=== PATIENT | male | born 1940 | race Caucasian/White ===

== ENCOUNTER 2021-06-22 15:42 | Emergency (ER) | payer MEDICARE ==
[~2021-06-22] VITALS: Ht 182.9 cm; Wt 101.2 kg
[2021-06-22] MEDS ORDERED: GLUMETZA500 MG PO (16:19)
[2021-06-22] MEDS ORDERED: HYDROCHLOROTH12.5 M1 PO (16:19)
[2021-06-22] MEDS ORDERED: LIPITOR40 MG PO (16:19)
[2021-06-22] MEDS ORDERED: ASPIRIN81 MG PO (16:20)
[2021-06-22] MEDS ORDERED: TIMOLOL MALEATE5 M2 OP (16:20)
[2021-06-22] MEDS ORDERED: XALATAN2.5 ML OPTH (16:21)
[2021-06-22] MEDS ORDERED: DILTIAZEM ER240 M2 PO (16:21)
[2021-06-22] MEDS ORDERED: OMEPRAZOLE20 MG PO (16:21)
[2021-06-22] MEDS ORDERED: ONDANSETRON ODT4 MG PO (18:13)
--- NOTE | 2021-06-22 21:11 | EKG ---
[facility] [address] [facility] [place] [address] Signed Sinus rhythm with 1st degree AV block Nonspecific ST and T wave abnormality Abnormal ECG No previous ECGs available Confirmed by LISA PERDOMO MD ([id number] on 06/22/2021 9:11:03 PM Electronically Signed By: LISA PERDOMO MD 06/22/212110 PATIENT NAME: RADHA TAYLOR Electrocardiogram DATE OF : 40 PHYSICIAN: LISA PERDOMO MD REPORT #: [id number] REPORT IS CONFIDENTIAL AND NOT TO BE RELEASED WITHOUT AUTHORIZATION
== END 2021-06-22 18:28 | disposition home or self-care (01) ==
LOC: ED 15:42
DX: R11.0 Nausea (principal); Z79.82 Long term (current) use of aspirin; Z79.84 Long term (current) use of oral hypoglycemic drugs; Z79.899 Other long term (current) drug therapy
CPT/HCPCS: 36415; 80053; 81001; 83690; 84484; 85025; 93005; 93010; 99284-25; A9270